=== PATIENT | male | born 2000 | race American Indian/Alaskan Native ===

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

== ENCOUNTER 2018-11-04 22:32 | Emergency (ER) | payer OTHER ==
[2018-11-04 22:32] VITALS: BMI 27.0
[2018-11-04 22:40] VITALS: BP 138/80; PULSE 74; RESP 20; TEMP 98.1; O2SAT 99
[2018-11-04] MEDS ORDERED: cefTRIAXone (Rocephin) 250 mg Inj IM STA (22:55)
--- NOTE | 2018-11-04 23:18 | C.PDOC ---
History Of Present Illness 18 year old male presents stating he was informed by his partner that she has chlamydia and is requesting to be check and treated for it. Patient has no symptoms at this time or other complaints. Time Seen by Provider: 11/04/18 22:52 Chief Complaint (Nursing): Medical Clearance History Per: Patient History/Exam Limitations: no limitations Onset/Duration Of Symptoms: Hrs Past Medical History Reviewed: Historical Data, Nursing Documentation, Vital Signs Vital Signs: Last Vital Signs Temp 98.1 F 11/04/18 22:38 Pulse 74 11/04/18 22:38 Resp 20 11/04/18 22:38 BP 138/80 11/04/18 22:38 Pulse Ox 99 11/04/18 22:38 - Medical History PMH: Asthma, Bronchitis - [facility] Procedures SUTURE OF LIP LACERATION (06/26/15) Family History: States: Unknown Family Hx - Social History Hx Tobacco Use: No Hx Alcohol Use: Yes Hx Substance Use: Yes - Immunization History Hx Tetanus Toxoid Vaccination: No Hx Influenza Vaccination: No Hx Pneumococcal Vaccination: No Review Of Systems Constitutional: Negative for: Fever, Chills Eyes: Negative for: Pain, Redness ENT: Negative for: Mouth Swelling Cardiovascular: Negative for: Chest Pain Respiratory: Negative for: Cough, Shortness of Breath Gastrointestinal: Negative for: Nausea, Vomiting, Diarrhea Genitourinary: Negative for: Dysuria, Hematuria Musculoskeletal: Negative for: Back Pain Skin: Negative for: Rash Neurological: Negative for: Weakness, Numbness, Dizziness Physical Exam - Physical Exam Appears: Well, Non-toxic, No Acute Distress Skin: Normal Color, Warm Head: Atraumatic, Normacephalic Eye(s): bilateral: Normal Inspection, PERRL, EOMI Oral Mucosa: Moist Neck: Normal ROM, Supple Chest: Symmetrical Respiratory: No Accessory Muscle Use, Other (Normal inspiratory effort) Gastrointestinal/Abdominal: Soft, No Tenderness, No Distention Male Genital: Other (Declined) Neurological/Psych: Oriented x3, Normal Speech, Normal Cranial Nerves (Grossly intact) Gait: Steady ED Course And Treatment O2 Sat by Pulse Oximetry: 99 (Room air) Pulse Ox Interpretation: Normal Medical Decision Making Medical Decision Making: Patient treated empirically and advised to await gc/chlamydia results. Disposition Counseled Patient/Family Regarding: Studies Performed, Diagnosis, Need For Followup - Disposition Referrals: [facility] at [facility] [Outside] Disposition: HOME/ ROUTINE Disposition Time: 23:17 Condition: STABLE Instructions: Sexually-Transmitted Diseases Forms: [facility] (Slovenian), General Discharge Instructions - Clinical Impression Clinical Impression: STD (sexually transmitted disease) - PA / YARN HAULER / Resident Statement MD/DO has reviewed & agrees with the documentation as recorded. - Scribe Statement The provider has reviewed the documentation as recorded by the Scribe Lavelle Sen All medical record entries made by the Scribe were at my direction and personally dictated by me. I have reviewed the chart and agree that the record accurately reflects my personal performance of the history, physical exam, medical decision making, and the department course for this patient. I have also personally directed, reviewed, and agree with the discharge instructions and disposition.
== END 2018-11-04 23:27 | disposition home or self-care (01) ==
LOC: C.ER 22:32
DX: A64 Unspecified sexually transmitted disease (principal)
CPT/HCPCS: 87491; 87591; 96372; 99283; J0696

== ENCOUNTER 2018-12-12 23:21 | Emergency (ER) | payer OTHER ==
[2018-12-12 23:22] VITALS: BMI 27.0
[2018-12-13] MEDS ORDERED: Sodium Chloride 0.9% 1,000 ML IV ONE (00:54)
[2018-12-13] MEDS ORDERED: Sodium Chloride 0.9% 1,000 ML ONE (01:01)
[2018-12-13 01:11] LABS: BASO # 0.1 K/uL (0.0-0.2); BASO % 0.5 % (0.0-2.0); EOS % 0.1 % (0.0-4.0); HEMOGLOBIN 14.1 g/dL (12.0-18.0); LYMPH % 8.4 % (20.0-40.0); MEAN CELL VOLUME 92.7 fL (80.0-94.0); MEAN CORPUSCULAR HEMOGLOBIN 30.3 pg (27.0-31.0); MEAN CORPUSCULAR HGB CONC 32.7 g/dL (33.0-37.0); MEAN PLATELET VOLUME 8.6 fL (7.2-11.7); MONO # 0.7 K/uL (0.0-0.8); MONO % 5.7 % (0.0-10.0); NEUT # 10.3 K/uL (1.8-7.0); NEUT % 85.3 % (50.0-75.0); PLATELET COUNT 211 K/uL (130-400); RBC 4.67 Mil/uL (4.40-5.90); RED CELL DISTRIBUTION WIDTH 12.6 % (11.5-14.5); WHITE BLOOD COUNT 12.1 K/uL (4.8-10.8)
[2018-12-13 01:19] LABS: BLOOD UREA NITROGEN 9 mg/dL (9-20); CALCIUM 9.4 mg/dl (8.6-10.4); GFR NON-AFRICAN AMERICAN > 60
--- NOTE | 2018-12-13 01:32 | C.PDOC ---
History Of Present Illness 18 year old male woke up at 1:30PM with headache, does not recall having headache when he went to bed last night. He describes it as a frontal headache and reports vomiting later this evening. Denies blurry vision, fever, neck stiff ness, weakness, numbness, chest pain, SOB, diarrhea, or abdominal pain. Patient does not having Hx of migraine but states he has not had headache similar to this before. Time Seen by Provider: 12/13/18 00:30 Chief Complaint (Nursing): Headache History Per: Patient History/Exam Limitations: no limitations Onset/Duration Of Symptoms: Hrs Current Symptoms Are (Timing): Still Present Preceeding Symptoms: None Associated Symptoms: Vomiting Recent travel outside of the [place]: No Past Medical History Reviewed: Historical Data, Nursing Documentation, Vital Signs Vital Signs: Last Vital Signs Temp 100.2 F H 12/12/18 23:29 Pulse 83 12/12/18 23:29 Resp 16 12/12/18 23:29 BP 137/78 12/12/18 23:29 Pulse Ox 98 12/12/18 23:29 - Medical History PMH: Asthma, Bronchitis - [facility] Procedures SUTURE OF LIP LACERATION (06/26/15) Family History: States: Unknown Family Hx - Social History Hx Tobacco Use: No Hx Alcohol Use: No Hx Substance Use: No - Immunization History Hx Tetanus Toxoid Vaccination: No Hx Influenza Vaccination: No Hx Pneumococcal Vaccination: No Review Of Systems Constitutional: Negative for: Fever, Chills Eyes: Negative for: Vision Change ENT: Negative for: Nose Discharge, Nose Congestion Cardiovascular: Negative for: Chest Pain, Palpitations Respiratory: Negative for: Cough, Shortness of Breath Gastrointestinal: Positive for: Vomiting Musculoskeletal: Negative for: Neck Pain, Back Pain Neurological: Positive for: Headache. Negative for: Weakness, Numbness, Dizziness Physical Exam - Physical Exam Appears: Non-toxic Skin: Normal Color, Warm, Dry Head: Atraumatic, Normacephalic Eye(s): bilateral: Normal Inspection, PERRL, EOMI Oral Mucosa: Moist Neck: Normal, No Midline Cervical Tenderness, No Paracervical Tenderness, Supple Chest: Symmetrical, No Tenderness Cardiovascular: Rhythm Regular Respiratory: Normal Breath Sounds, No Rales, No Rhonchi, No Wheezing Gastrointestinal/Abdominal: Soft, No Tenderness Extremity: Normal ROM (x4) Neurological/Psych: Oriented x3, Normal Speech, Normal Cranial Nerves, Normal Motor, Normal Sensation Gait: Steady ED Course And Treatment - Laboratory Results Result Diagrams: 12/13/18 01:04 12/13/18 01:04 O2 Sat by Pulse Oximetry: 98 Medical Decision Making Medical Decision Making: Plan: * Blood work * IV fluids * Toradol * Reglan On re-eval, temp improved to 99.5. Patient able to range neck without difficulty. AAOx3, not lethargic. No further episodes of vomiting in the ED. Patient states that he would like to go home. Stable for discharge at this time. Advised outpatient followup as needed, or returning to the ED for any new or worsening symptoms including high fever, neck stiffness, or neurological deficits. Disposition - Disposition Disposition: HOME/ ROUTINE Disposition Time: 02:35 Condition: GOOD Additional Instructions: [facility], thank you for letting us take care of you today. Your provider was Chantel Nguyen MD and you were treated for HEADACHE, VOMITING. The emergency medical care you received today was directed at your acute symptoms. If you were prescribed any medication, please fill it and take as directed. It may take several days for your symptoms to resolve. Return to the Emergency Department if your symptoms worsen, do not improve, or if you have any other problems. Please contact your doctor or call one of the physicians/clinics you have been referred to that are listed on the Patient Visit Information form that is included in your discharge packet. Bring any paperwork you were given at discharge with you along with any medications you are taking to your follow up visit. Our treatment cannot replace ongoing medical care by a primary care provider outside of the emergency department. Thank you for allowing the [facility] team to be part of your care today. If you had an X-Ray or CT scan: A Radiologist will review the ED reading if any change in treatment is needed we will contact you. If you had a blood, urine, or wound culture: It will take several days for the results, if any change in treatment is needed we will contact you. If you had an STI test: It will take 48 hours for the results. Please call after 1 week if you have not heard back. Instructions: Headache, Adult (DC) Forms: [employer] (Polish) - Clinical Impression Clinical Impression: Headache - Scribe Statement The provider has reviewed the documentation as recorded by the Scribe Lavelle Sen All medical record entries made by the Benedict were at my direction and personally dictated by me. I have reviewed the chart and agree that the record accurately reflects my personal performance of the history, physical exam, medical decision making, and the department course for this patient. I have also personally directed, reviewed, and agree with the discharge instructions and disposition.
[2018-12-13 02:26] LABS: BANDS 1 % (0-2); LYMPHOCYTE 8 % (20-40); MONOCYTE 6 % (0-10); NEUTROPHIL 85 % (50-75); PLATELET ESTIMATE NORMAL (NORMAL); TOTAL CELLS COUNTED 100
[2018-12-13 02:35] VITALS: BP 112/66; PULSE 81; RESP 18; TEMP 99.5
[2018-12-13 05:22] VITALS: O2SAT 98
== END 2018-12-13 02:48 | disposition home or self-care (01) ==
LOC: C.ER 23:21
DX: R51 Headache (principal)
CPT/HCPCS: 80048; 85025; 96374; 96375; 99284; J1885; J2765; J7030

== ENCOUNTER 2019-01-24 01:14 | Emergency (ER) | payer OTHER ==
[2019-01-24 01:14] VITALS: BMI 27.0
[2019-01-24 01:26] VITALS: BP 129/76; PULSE 72; RESP 20; TEMP 98; O2SAT 96
--- NOTE | 2019-01-24 01:31 | C.PDOC ---
History Of Present Illness Pt presents with some penile discharge for about 2 days. Was informed by his partner. Has had unprotected intercourse. She is also being treated Time Seen by Provider: 01/24/19 01:31 Chief Complaint (Nursing): Male Genitourinary History Per: Patient History/Exam Limitations: no limitations Onset/Duration Of Symptoms: Days (2) Severity: None Associated Symptoms: denies: Fever, Chills, Nausea, Vomiting Alleviating Factors: None Recent travel outside of the [place]: No Additional History Per: Patient Past Medical History Reviewed: Historical Data, Nursing Documentation, Vital Signs Vital Signs: Last Vital Signs Temp 98 F 01/24/19 01:20 Pulse 72 01/24/19 01:20 Resp 20 01/24/19 01:20 BP 129/76 01/24/19 01:20 Pulse Ox 96 01/24/19 01:20 - Medical History PMH: Asthma, Bronchitis - [facility] Procedures SUTURE OF LIP LACERATION (06/26/15) Family History: States: No Known Family Hx - Social History Hx Tobacco Use: No Hx Alcohol Use: No Hx Substance Use: No - Immunization History Hx Tetanus Toxoid Vaccination: No Hx Influenza Vaccination: No Hx Pneumococcal Vaccination: No Review Of Systems Constitutional: Negative for: Fever, Chills Genitourinary: Positive for: Penile Discharge. Negative for: Dysuria, Scrotal Pain Physical Exam - Physical Exam Appears: Non-toxic, No Acute Distress Gastrointestinal/Abdominal: Soft, No Tenderness, No Distention Male Genital: No Testicular Tenderness, No Testicular Swelling, No Inguinal Tenderness, No Scrotal Swelling Neurological/Psych: Oriented x3 ED Course And Treatment O2 Sat by Pulse Oximetry: 96 Pulse Ox Interpretation: Normal Reevaluation Time: 01:38 Reassessment Condition: Improved Disposition Counseled Patient/Family Regarding: Studies Performed, Diagnosis, Need For Followup, Rx Given - Disposition Referrals: [facility] [Outside] Disposition: HOME/ ROUTINE Disposition Time: 01:31 Condition: FAIR Prescriptions: Doxycycline Hyclate 100 mg PO BID #20 capsule Instructions: Sexually-Transmitted Diseases (DC) Forms: [employer] (Dutch) - Clinical Impression Clinical Impression: STD (sexually transmitted disease)
[2019-01-24] MEDS ORDERED: cefTRIAXone (Rocephin) 250 mg Inj IM STA (01:33)
== END 2019-01-24 02:02 | disposition home or self-care (01) ==
LOC: C.ER 01:14
DX: A64 Unspecified sexually transmitted disease (principal)